=== PATIENT | male | born 1965 | race African-American/Black ===

== ENCOUNTER 2016-11-14 10:38 | Observation (INO) | payer SELFPAY ==
--- NOTE | ~2016-11-14 | HP ---
History And Physical [address] [place] [address] NAME: MARTÍN PRIETO : 61 STATUS : ADM Lashay PAT#: [id number] AGE: 51 ADM/REG DATE : 11/14/16 MR#: [id number] REPORT SERV DATE: 11/14/16 DICTATED BY: KATALINA JAMISON DATE: 11/14/16 REPORT STATUS : Draft TRANSCRIBED BY: MODChristine DATE: 11/14/16 DATE OF ADMISSION: 11/14/2016 PRIMARY CARE PROVIDER: None. CHIEF COMPLAINT: Atypical chest pain. HISTORY OF PRESENT ILLNESS: A pleasant 51-year-old black gentleman with no known history of CAD, presents to our facility with description of atypical chest pain. He states that last night while sitting on the couch, he had some sharp pain that radiated across his chest. He reports that he had a meal of mashed potatoes and green beans for dinner. Again this morning while at work around 0800 hours, he developed a similar sharp pain that radiated across his chest and stopped. At its most intense, he rated the chest discomfort a 7/10. At time of interview in the [facility], he is pain-free. He states the episode lasted 1 to 2 minutes in duration. There was no exertional component described and no stressful argumentative or confrontational event. The patient denies any shortness of breath, nausea, diaphoresis, or dizziness. He does report some belching. The patient denies any personal history of myocardial infarction, stroke, DVT, or pulmonary embolus although he feels he may have been worked up for a "small stroke" several years ago. The patient denies any recent fever or chills, no palpitations, no syncopal episodes. Denies PND or orthopnea. Of note, the patient consumed a half cup of coffee this morning at 0530 hours, otherwise n.p.o. PAST MEDICAL HISTORY: 1. Elevated blood pressure although the patient denies hypertension. 2. Denies dyslipidemia or diabetes. 3. Ongoing tobacco abuse. 4. Positive family history for early CAD. PAST SURGICAL HISTORY: None. SOCIAL HISTORY: He is single. He has 9 children. He is employed as a cnc lathe machinist. He does not have a structured exercise routine. Smokes 5 cigarettes per day for the last two years. Consumes beer on an occasional basis. Denies illicits. FAMILY HISTORY: Mother with CAD and stents at 70, remains alive at 77. Brother with a heart attack in his 50s, remains alive at 58. REVIEW OF SYSTEMS: A 14-point review of systems performed, significant for HPI. No other contributory diagnosis identified. ALLERGIES: TO PENICILLIN, ITCHING; BERRIES AND PEACHES, ANAPHYLAXIS. History And Physical [address] [address] NAME: MARTÍN PRIETO : 61 STATUS : ADM Lashay PAT#: [id number] AGE: 51 ADM/REG DATE : 11/14/16 MR#: [id number] REPORT SERV DATE: 11/14/16 DICTATED BY: KATALINA JAMISON DATE: 11/14/16 REPORT STATUS : Draft TRANSCRIBED BY: MYA DATE: 11/14/16 HOME MEDICINES: Aspirin 81 mg daily; Tums p.r.n.; and Advil p.r.n. PHYSICAL EXAMINATION: VITAL SIGNS: Bilateral blood pressures on arrival, right 172/103, left 166/103, pulse 69, respirations 20, temperature 97.9, and O2 saturation 99% on room air. Height 5 feet 10 inches. Weight 170 pounds (stated). GENERAL: Cooperative, in no apparent distress. HEENT: Pupils 2 mm, sclera nonicteric. Nares patent. Moist mucous membranes. No xanthelasma. NECK: Trachea midline, no thyromegaly. No JVD. No bruits. LYMPH: No cervical lymphadenopathy. No supraclavicular lymphadenopathy. RESPIRATORY: Unlabored respirations. Breath sounds clear bilaterally to posterior auscultation. No wheezes or rhonchi. CARDIOVASCULAR: Regular rate. No murmur, rub or gallop appreciated. Extremities without edema. Pulses 2+ bilaterally. ABDOMEN: Soft, nontender, nondistended, normal bowel sounds auscultated throughout. No organomegaly. SKIN: Warm, dry extremities. No pallor, or cyanosis. PSYCHIATRIC: Appropriate affect. Alert, oriented x3. LABORATORY DATA: Troponin less than 0.02, second pending. Potassium 4.0, BUN 14, creatinine 1.30, glucose 109, magnesium 2.2, and lipase 107. WBC 5.2, hemoglobin 14.6, hematocrit 42.7, and platelet count 228,000. EKG sinus rhythm with LVH. ASSESSMENT AND PLAN: 1. Atypical chest pain. The patient will be observed in the CP[facility] to rule out DC with two sets of cardiac markers. EKGs appear stable. The patient will continue to be held n.p.o. for probable MPI today. Discharge home if low risk, no ischemia. If anything suggestive of ischemia, Cardiology referral will be initiated. Otherwise, the patient will be asked to follow up at [facility] in one to two weeks as a new patient. 2. Elevated blood pressure. Clonidine p.r.n., now with plans for lisinopril 5 mg at discharge with followup at [facility]. 3. Unknown cholesterol status. We will check a fasting lipid panel. 4. Ongoing tobacco abuse. Counseled regarding cessation. 5. No PCP. Followup at [facility] 1 to 2 weeks. ANGELA/MYA Katalina Jamison, MSN, CONSTRUCTION MANAGEMENT ASSISTANT-BC / [id number] CC: History And Physical [address] [address] NAME: MARTÍN PRIETO : 61 STATUS : ADM Lashay PAT#: [id number] AGE: 51 ADM/REG DATE : 11/14/16 MR#: [id number] REPORT SERV DATE: 11/14/16 DICTATED BY: KATALINA JAMISON DATE: 11/14/16 REPORT STATUS : Draft TRANSCRIBED BY: MODL DATE: 11/14/16 Katalina Jamison, MSN, CONSTRUCTION MANAGEMENT ASSISTANT-BC
[2016-11-14 09:28] LABS: BASOPHILS 0.6 %; BASOPHILS ABSOLUTE 0.03 10/3/uL (0.0-0.16); EOSINOPHILS 3.3 %; EOSINOPHILS ABSOLUTE 0.17 10/3/uL (0.0-0.53); ER CBC TAT 0 Hrs 05 Mins; IMMATURE GRANULOCYTES 1.4 %; IMMATURE GRANULOCYTES ABSOLUTE 0.07 10/3/uL (0.0-0.11); LYMPHOCYTES ABSOLUTE 2.02 10/3/uL (0.67-4.30); MEAN PLATELET VOLUME 10.2 fL (9.2-13.0); MONOCYTES 9.3 %; MONOCYTES ABSOLUTE 0.48 10/3/uL (0.21-1.20); NEUTROPHILS 46.4 %; NEUTROPHILS ABSOLUTE 2.41 10/3/uL (2.02-8.40); RBC DISTRIBUTION WIDTH 12.6 % (12.0-16.0); WHITE BLOOD CELLS 5.2 10/3/uL (4.5-10.5)
[2016-11-14 09:29] LABS: HEMATOCRIT 42.7 % (40.0-51.0); HEMOGLOBIN 14.6 g/dL (13.6-17.8); MEAN CORPUS HGB CONC 34.2 g/dL (32.0-36.0); MEAN CORPUSCULAR HEMOGLOB 30.9 pg (26.0-34.0); MEAN CORPUSCULAR VOLUME 90.5 fL (80-100); RED CELL COUNT 4.72 10/6/uL (4.7-6.1)
[2016-11-14 09:30] LABS: MANUAL DIFF NO %; PLATELET COUNT 228 10/3/uL (150-400)
[2016-11-14 09:36] LABS: INTERNATIONAL NORMAL RATI 1.1 UNITS (-); PARTIAL THROMBO TIME 26.6 SEC (22.5-37.2); PROTIME (NOT ORD) 14.5 SEC (12.0-14.5)
[2016-11-14 09:44] LABS: BUN (BLOOD UREA NITROGEN) 14 MG/DL (6-23); CALCIUM, SERUM 8.3 MG/DL (8.5-10.4); CHEST PAIN PROFILE TAT 0 Hrs 21 Mins; CHLORIDE, SERUM 106 MMOL/L (96-112); CO2 (CARBON DIOXIDE) 29 MMOL/L (24-34); GFR AFRICAN AMERICAN 72 ML/MIN (>=60); GFR NON AFRICAN AMERICAN 62 ML/MIN (>=60); GLUCOSE, SERUM 109 MG/DL (60-99); SODIUM, SERUM 139 MMOL/L (135-148); TROPONIN I <0.02 NG/ML (<0.05)
[~2016-11-14 10:38] MED LIST: ADVIL PO; HALF81 PO; TUMSROLL PO
[2016-11-14 12:34] LABS: TROPONIN I <0.02 NG/ML (<0.05)
[2016-11-14 13:50] LABS: CHOL/HDL RATIO(NOT ORDER) 2.9 (0-5); CHOLESTEROL 206 MG/DL (< 200); HDL CHOLESTEROL 70 MG/DL (> 39); LDL CHOLESTEROL 101 MG/DL (< 130); NON-HDL CHOLESTEROL 136 MG/DL (< 160); TRIGLYCERIDE 179 MG/DL (< 150)
[2016-11-14] MEDS ORDERED: PRIN5 PO (16:42)
== END 2016-11-14 17:22 | disposition home or self-care (01) ==
LOC: ER 10:38 → CDU1 10:56
PROVIDERS: Clinical Nurse Specialist; Physician Assistant
DX: R07.89 Other chest pain (principal); R03.0 Elevated blood-pressure reading, without diagnosis of hypertension; G43.909 Migraine, unspecified, not intractable, without status migrainosus; F17.210 Nicotine dependence, cigarettes, uncomplicated; Z88.0 Allergy status to penicillin; Z88.8 Allergy status to other drugs, medicaments and biological substances; Z79.82 Long term (current) use of aspirin; Z79.899 Other long term (current) drug therapy
CPT/HCPCS: 71010; 78452; 80048; 80061; 83690; 83735; 84484; 85025; 85610; 85730; 93005; 93017; 93306; 99285; A9270-GY; A9502; G0378; J0360